=== PATIENT | female | born 1955 | race Caucasian/White ===

== ENCOUNTER 2017-02-18 16:54 | Outpatient (CLI) | payer BC, OTHER ==
--- NOTE | 2017-02-18 20:02 | RAD ---
TWO VIEWS CHEST 02/18/17 HISTORY: Choking episode. PA and lateral views of the chest is obtained. The lungs are well aerated. No evidence of active int rathoracic disease seen. No evidence of effusions, pneumonia, or pneumothorax seen. IMPRESSION: Unremarkable two views chest. POS: [facility]
== END 2017-02-18 16:55 | disposition home or self-care (01) ==
LOC: MADRAD 16:54
PROVIDERS: ATTEND Nurse Practitioner Family
DX: R09.89 Other specified symptoms and signs involving the circulatory and respiratory systems (principal)
CPT/HCPCS: 71020